=== PATIENT | female | born 1945 | race Caucasian/White ===

== ENCOUNTER → 2016-12-12 | Outpatient (CLI) | payer OTHER, SELFPAY ==
[~2016-12-12] MED LIST: ADVAIR HFA 115-12 GM INH; AMLODIPINE BESYL5 MG PO; AMLODIPINE-BENA1 CAP PO; ASCORBIC ACID500 M2 PO; ASPIRIN ENTERI325 M1 PO; BAYER ASPIRIN325 M1 PO; CALCIUM; CALCIUM + VITA1 EAC1 PO; CALCIUM PO; FISH OIL 1,0001 CAP PO; FISH OIL300 MG; GUMMI BEAR1 TAB.CHEW PO; LEVAQUIN PO; LOTENSIN20 MG PO; MEDROL; MELATONIN5 M1 PO; MIRAPEX0.25 MG PO; MUCINEX PO; MULTI-VITAMIN1 EAC1 PO; MULTIPLE VITAMI1 T11 PO; MULTIVITAMIN1 UDCAP PO; NORVASC PO; PREDNISONE PO; PROAIR HFA8.5 GM INH; SILDENAFIL20 MG PO; SIMVASTATIN20 MG PO; SYMBICORT INH; TAMIFLU75 M1 PO; TASPRIN325 MG PO; TYL325 PO; VITAMIN B COMP1 EACH PO; VITAMIN C; VITAMIN C500 M2 PO; Vitamin C; Vitamin C PO; ZOCOR20 MG PO; [UNRECOGNIZED DRUG - OTHER] PO
--- NOTE | ~2016-12-12 | US84 ---
[id number] [facility]. [facility] [address] [place], [place] [address] [id number] O MR#: [id number] Acc #: [id number] NAME: JEFF LEÓN : 1945 SEX: F STUDY DATE/TIME: 12/12/2016 10:28 UNIT: CNIV ROOM: STUDY DESCRIPTION: US LE Veins Complete Shon Stdy Attending Physician: Ned Reina M.D. Referring Physician: Ned Reina M.D. Ordering Physician: Ned Reina M.D. Primary Care Physician: Red Ruby M.D. MEDICAL IMAGING REPORT This report is preliminary unless electronic signature is present EXAM Bilateral lower extremity venous duplex 12/12/2016. HISTORY Bilateral lower extremity edema for 6 weeks and shortness of breath. Evaluate for deep vein thrombosis. FINDINGS TECHNIQUE Venous ultrasound examination of both lower extremities was performed using grayscale, spectral Doppler and color flow Doppler imaging. FINDINGS The examination is negative. There is no evidence of deep venous thrombus from the groin to the lower calf bilaterally. Visualized greater saphenous veins are also patent. IMPRESSION Negative examination. No evidence of lower extremity deep venous thrombosis. Dictated by... Adrian Quinteros M.D. THIS IS AN ELECTRONICALLY VERIFIED REPORT Adrian Quinteros M.D. at 12/13/2016 6:06 AM OBDULIA/sheri TD: 12/12/2016 16:22 JOB #: [id number] MEDICAL IMAGING REPORT COPY
--- NOTE | ~2016-12-12 | CR63 ---
[facility] A Service of [facility] & [facility] RADIOLOGY TEXT RESULTS PATIENT: JEFF LEÓN LOCATION: CNIV : 46 UNIT #: [id number] AGE: [address]: Ned Reina MD SEX: F ORDER DR: [id number] [facility] [address] [place], [place] [address] [id number] O MR#: [id number] Acc #: [id number] NAME: JEFF LEÓN : 1945 SEX: F STUDY DATE/TIME: 12/12/2016 12:42 UNIT: CNIV ROOM: STUDY DESCRIPTION: CR Chest 2 View Attending Physician: Ned Reina M.D. Referring Physician: Ned Reina M.D. Ordering Physician: Ned Reina M.D. Primary Care Physician: Red Ruby M.D. MEDICAL IMAGING REPORT This report is preliminary unless electronic signature is present EXAM Chest x-ray, 12/12 at 12:42 INDICATION Shortness of air today. COPD. Former smoker. FINDINGS 2 views of the chest are compared with 09/14/2016. The lungs remain emphysematous. There is some atherosclerotic disease in the aorta. Heart size within normal limits. Scattered areas of chronic interstitial scarring are again seen in both lungs. No acute infiltrates, and no pneumothorax. IMPRESSION Emphysema with scattered areas of scarring in the lungs. No acute findings in the chest. Dictated by... Rao Stoll Jr., M.D. THIS IS AN ELECTRONICALLY VERIFIED REPORT Rao Stoll Jr., M.D. at 12/13/2016 9:58 PM ELLEN/wesley TD: 12/13/2016 09:58 JOB #: [id number] MEDICAL IMAGING REPORT COPY
--- NOTE | ~2016-12-12 | NM69 ---
[facility] A Service of [facility] & [facility] RADIOLOGY TEXT RESULTS PATIENT: JEFF LEÓN LOCATION: CNIV : 46 UNIT #: [id number] AGE: [address]: Ned Reina MD SEX: F ORDER DR: [id number] [facility] [address] [place], [place] [address] [id number] O MR#: [id number] Acc #: [id number] NAME: JEFF LEÓN : 1945 SEX: F STUDY DATE/TIME: 12/12/2016 12:23 UNIT: CNIV ROOM: STUDY DESCRIPTION: NM Pulm Vent and Perf Attending Physician: Ned Reina M.D. Referring Physician: Ned Reina M.D. Ordering Physician: Ned Reina M.D. Primary Care Physician: Red Ruby M.D. MEDICAL IMAGING REPORT This report is preliminary unless electronic signature is present EXAM Ventilation-perfusion lung scan HISTORY 71-year-old female with shortness of air and bilateral leg pain, O2 levels dropped dramatically with exertion. Shortness of air for 4-5 months. COMPARISON Two-view chest 12/12/[address] chest 09/12/2016. FINDINGS Ventilation perfusion lung scan was performed in standard 8 projections. Perfusion agent 5.59 mCi technetium 99m MAA and the ventilation agent 28.7 mCi technetium 99m DTPA aerosol. Examination demonstrates areas of decreased perfusion right upper lobe and to a lesser extent left upper and left mid lungs. Particularly with the decreased perfusion of the right upper lobe this corresponds to an area of severe emphysema as noted on the patient's prior chest CT. There is some air trapping in the medial aspect of the right upper lung. No ventilation-perfusion mismatches are identified to suggest pulmonary embolus. Relatively symmetric perfusion between the right and left lung bases. IMPRESSION Multiple matched ventilation-perfusion defects felt to correspond to areas of emphysematous change as noted on patient's prior chest CT. Study is considered low probability for pulmonary embolus. Dictated by... aCleb Carballo M.D. THIS IS AN ELECTRONICALLY VERIFIED REPORT Caleb Carballo M.D. at 12/13/2016 5:00 PM [facility] A Service of [facility] & [facility] RADIOLOGY TEXT RESULTS PATIENT: JEFF LEÓN LOCATION: [facility] : 46 UNIT #: [id number] AGE: [address]: Ned Reina MD SEX: F ORDER DR: JUNIOR/wesley TD: 12/12/2016 19:02 JOB #: [id number] MEDICAL IMAGING REPORT COPY
== END | disposition home or self-care (01) ==
LOC: CNIV 09:31
DX: M79.604 Pain in right leg (principal); R06.02 Shortness of breath; M79.89 Other specified soft tissue disorders; M79.605 Pain in left leg; R94.2 Abnormal results of pulmonary function studies; J43.9 Emphysema, unspecified; J98.4 Other disorders of lung
CPT/HCPCS: 71020; 78582; 93970; A9540; A9567

== ENCOUNTER → 2017-03-08 | Outpatient (CLI) | payer OTHER ==
--- NOTE | ~2017-03-08 | CT57 ---
[facility] A Service of [facility] RADIOLOGY TEXT RESULTS PATIENT: JEFF LEÓN LOCATION: [facility] : 46 UNIT #: [id number] AGE: [address]: Ned Reina MD SEX: F ORDER DR: [id number] [facility] [address] [place], [place] [address] [id number] O MR#: [id number] Acc #: [id number] NAME: JEFF LEÓN : 1945 SEX: F STUDY DATE/TIME: 03/08/2017 13:27 [facility]: STUDY DESCRIPTION: CT Chest Wo Cont Attending Physician: Ned Reina M.D. Referring Physician: Ned Reina M.D. Ordering Physician: Ned Reina M.D. Primary Care Physician: Red Ruby M.D. MEDICAL IMAGING REPORT This report is preliminary unless electronic signature is present EXAM CT of the chest without contrast. INDICATION Shortness of breath since September, history of COPD and emphysema. TECHNIQUE CT of the chest was performed without contrast. Coronal and sagittal reformatted images were obtained. Comparison is made with 09/13/2016. This CT exam was performed with one or more of the following radiation dose reduction techniques: automatic exposure control, adjustment of mA and/or kV according to patient size, and iterative reconstruction. FINDINGS Emphysema. No suspicious pulmonary nodule. No new infiltrates. There are some stable mildly prominent mediastinal lymph nodes which are nonspecific and may be reactive. No evidence for pleural effusion. Coronary artery calcification. Limited imaging of the upper abdomen is unremarkable. Bone windows are unremarkable. IMPRESSION Emphysema. No suspicious pulmonary nodule or airspace consolidation. Dictated by... Simeon Carballo M.D. THIS IS AN ELECTRONICALLY VERIFIED REPORT Simeon Carballo M.D. at 03/09/2017 7:15 AM Csasandra TD: 03/08/2017 20:21 JOB #: [id number] [facility] A Service of [facility] RADIOLOGY TEXT RESULTS PATIENT: JEFF LEÓN LOCATION: [facility] : 46 UNIT #: [id number] AGE: [address]: Ned Reina MD SEX: F ORDER DR: MEDICAL IMAGING REPORT Page 1 of 1 COPY
== END | disposition home or self-care (01) ==
LOC: CCAT 12:56
DX: R93.8 Abnormal findings on diagnostic imaging of other specified body structures (principal); J43.9 Emphysema, unspecified
CPT/HCPCS: 71250

== ENCOUNTER 2017-06-19 18:10 | Inpatient (IN) | payer OTHER ==
[~2017-06-19] VITALS: Ht 152.4 cm; Wt 52.6 kg
--- NOTE | ~2017-06-19 | HP ---
Unit #: [id number] #: [id number] Patient: JEFF LEÓN [id number] [address] [place], [place] [address] [id number] I MR#: [id number] NAME: JEFF LEÓN. ROOM: 311 Age: 72 Sex: F Admission Date: 06/19/2017 : 1945 Attending Physician: Yessy Black M.D. Primary Care Physician: Red Ruby M.D. HISTORY AND PHYSICAL CHIEF COMPLAINT Shortness of breath, chest tightness. HISTORY OF PRESENTING ILLNESS A 72-year-old female who has significant pulmonary disease. Patient has severe COPD, has severe pulmonary hypertension. Was at [facility] and has been evaluated for lung transplant. Patient is not a candidate for lung transplant at this time because of severe pulmonary hypertension. She was doing okay until yesterday morning when she went shopping. On the way back from shopping, she started having shortness of breath worse. She came home and laid down for an hour but did not get better and actually gradually continued to get worse. Patient did have vomiting one time too yesterday on the way back from her shopping. She has some cough with sputum production off and on. No hemoptysis. She does not complain of fever at home, although in the ER, patient's T-max was 100. Patient is being admitted to telemetry unit. She has been diagnosed with influenza A and also acute COPD exacerbation. Patient is still complaining of generalized weakness and tiredness and complains of shortness of breath which is not any better at this time. PAST MEDICAL HISTORY 1. Hypertension. 2. Hyperlipidemia. 3. Severe COPD. 4. Chronic respiratory failure, on home O2. 5. Pulmonary hypertension. 6. TIA in the past. PAST SURGICAL HISTORY 1. Appendectomy. 2. Hysterectomy. 3. Hemorrhoidectomy. 4. Sinus surgery. SOCIAL HISTORY Patient has a past history of smoking but has not smoked for many years. No history of alcohol abuse or drug abuse. She lives by herself. She does have three sons. FAMILY HISTORY Patient does have a family history of CVA, diabetes mellitus, coronary artery disease, and ovarian cancer. Unit #: [id number] #: [id number] Patient: JEFF LEÓN HOME MEDICATIONS 1. Simvastatin 20 mg daily. 2. Mirapex 0.25 mg at bedtime. 3. Vj aspirin 325 mg daily. 4. Lotensin 20 mg daily. 5. Amlodipine 5 mg daily. 6. Advair 2 puffs inhaler q.12. 7. ProAir inhaler q.6 p.r.n. 8. Multivitamin daily. 9. Vitamin B-Complex tablet daily. 10. Vitamin C 500 mg daily. 11. Melatonin 5 mg at bedtime. 12. Fish oil capsules daily. 13. Levaquin 500 daily. 14. Medrol Dosepak. 15. Mucinex 600 twice daily. ALLERGIES No known drug allergies. REVIEW OF SYSTEMS As per History of Presenting Illness. Additionally, no chest pain, no abdominal pain, no constipation or diarrhea, no syncopal episode. She does complain of some dizziness. PHYSICAL EXAMINATION GENERAL: Patient is lying in bed and seems to be in mild respiratory distress. Patient is on 6 liters oxygen. VITAL SIGNS: Blood pressure is 132/50, respiratory rate 18, pulse 93, temperature 98.7, oxygen saturation is 93%. HEENT: Head is normocephalic. Eye movements are normal. Some mild respiratory distress. CHEST: Decreased air entry bilateral. CARDIOVASCULAR: S1 and S2 positive. Tachycardia. ABDOMEN: Soft. No tenderness. EXTREMITIES: Negative edema. CENTRAL NERVOUS SYSTEM: Patient is awake, alert, oriented x3. No focal neurological deficit. DIAGNOSTIC STUDIES LABORATORY: WBC 10.6, hemoglobin 16, hematocrit 47, platelet count of 236,000. Troponin is less than 0.05. Lactic acid 1.9. PT-INR is 12.4 and 1.1. Influenza A is positive. Sodium 140, potassium 4, chloride 106, BUN 23, creatinine 0.9. Liver enzymes are stable. BNP 33. Blood cultures are negative so far. IMAGING: Chest x-ray shows no acute radiographic abnormalities. Findings of emphysema. ASSESSMENT Patient is being admitted to telemetry unit at [facility] with: 1. Acute on chronic respiratory failure. 2. Influenza A positive. 3. Acute chronic obstructive pulmonary disease exacerbation. 4. Severe pulmonary hypertension. 5. Hypertension. 6. Hyperlipidemia. Unit #: [id number] #: [id number] Patient: JEFF LEÓN PLAN Admit to telemetry unit. Dr. Reina has been consulted. IV Solu-Medrol is being started. Tamiflu 75 mg b.i.d. is being started. DuoNeb q.i.d. Protonix 40 mg daily. Labs results from [facility] will be obtained. Home medications have been reviewed and adjusted. Lovenox for DVT prophylaxis is being given. The plan of care has been discussed with the patient at length. She does verbalize understanding. All questions were answered. Dictated by Mauricio Lo TD: 06/20/2017 16:22 JOB #: [id number] HISTORY AND PHYSICAL Page 1 of 1 X Yessy Black MD X HISTORY AND PHYSICAL
--- NOTE | ~2017-06-19 | EKG ---
PATIENT: JEFF LEÓN UNIT #: [id number] Ventricular Rate: 92 BPM Atrial Rate: 92 BPM P-R Interval: 138 ms QRS Duration: 78 ms Q-T Interval: 352 ms QTC Calculation(Bezet): 435 ms P [place]: 73 degrees Calculated R [place]: 57 degrees Calculated T [place]: 49 degrees Diagnosis Line: Normal sinus rhythm Diagnosis Line: Possible Left atrial enlargement Diagnosis Line: Borderline ECG Diagnosis Line: When compared with ECG of 01-NOV-2014 13:13, Diagnosis Line: No significant change was found Diagnosis Line: Confirmed by JAIME BARBOSA MD ([id number]) on Diagnosis Line: 06/20/2017 2:09:41 PM INTERPRETING MD: CHELSEY GARCIA
--- NOTE | ~2017-06-19 | CR72 ---
[facility] A Service of [facility] & [facility] RADIOLOGY TEXT RESULTS PATIENT: JEFF LEÓN LOCATION: [facility]- : 46 UNIT #: [id number] AGE: [address]: Yessy Black MD SEX: F ORDER DR: [id number] [facility] [address] [place], [place] [address] [id number] I MR#: [id number] Acc #: [id number] NAME: JEFF LEÓN. : 1945 SEX: F STUDY DATE/TIME: 06/19/2017 18:20 [facility] ROOM: [facility] STUDY DESCRIPTION: CR Chest Single View Portable Attending Physician: Yessy Black M.D. Ordering Physician: Corrine Thomas M.D. Primary Care Physician: Red Ruby M.D. MEDICAL IMAGING REPORT This report is preliminary unless electronic signature is present EXAM Portable AP view of the chest COMPARISON December 12, 2016, September 14, 2016 and September 12, 2016. INDICATIONS 72-year-old female with dyspnea and hypoxia today. History of hypertension, emphysema and COPD. FINDINGS No evidence of pneumothorax, pleural effusion or definite acute airspace disease. Minimal band-like opacities adjacent to the left heart border, stable from December 12, 2016, most in keeping with a normal bronchovascular structures and/or atelectasis. There is lung hyperlucency suggesting emphysema. Cardiomediastinal silhouette is within normal limits. There is calcification of the thoracic aorta. Calcified right hilar lymph nodes. Band-like opacities in left lung base are also stable as compared to insurance sales representative topogram of CT of March 08, 2017, favoring normal bronchovascular structures as there is no evidence of consolidative pneumonia or atelectasis at that time. IMPRESSION No acute radiographic abnormality of the chest. Findings of emphysema. Normal heart size. Dictated by... Walter Zuniga M.D. THIS IS AN ELECTRONICALLY VERIFIED REPORT Walter Zuniga M.D. at 06/22/2017 1:31 PM BLM/lb STS. [facility] A Service of [facility] & [facility] RADIOLOGY TEXT RESULTS PATIENT: JEFF LEÓN LOCATION: [facility] 311-01 : 46 UNIT #: [id number] AGE: [address]: Yessy Black MD SEX: F ORDER DR: TD: 06/20/2017 10:58 JOB #: [id number] MEDICAL IMAGING REPORT Page 1 of 1 COPY
--- NOTE | ~2017-06-19 | CO ---
Unit #: [id number] #: [id number] Patient: JEFF QUIROZ [id number] [address] [place], [place] [address] [id number] I MR#: [id number] NAME: JEFF QUIROZ. ROOM: 311 Age: 72 Sex: F Admission Date: 06/19/2017 : 1945 Attending Physician: Yessy Black M.D. Primary Care Physician: Red Ruby M.D. Consultation Date: 06/20/2017 CONSULTATION REPORT REASON FOR CONSULTATION COPD, respiratory failure. HISTORY OF PRESENT ILLNESS The patient is a 72-year-old female, known to me from office evaluation. She previously had been evaluated by another automation manager and actually had been referred to [facility] for possible transplant of her emphysema. She had severe pulmonary hypertension, marked desaturation of her oxygen with minimal exertion. She was in pulmonary rehab and slowly improving. I discussed the case with Dr. Flores and he did not feel that she was a transplant candidate for her emphysema, but did have severe pulmonary hypertension. After our discussion, she was evaluated by pulmonary hypertension specialist at [facility]. She apparently was put on sildenafil and also was being evaluated for possible inhaled therapy as well. She has undergone extensive workup including right heart catheterization and I do not have those details. She apparently felt ill and presented through the emergency room and was found to have influenza by rapid screen. We were asked to evaluate for her COPD and respiratory failure. She remains on her home dose of oxygen at 5 or 6 L. She denies much in the way of wheezing, although she was a little congested and short of breath, and just generally weak. There has been no sputum production or hemoptysis or chest pain. PAST MEDICAL HISTORY Remarkable for emphysema, chronic respiratory failure, pulmonary hypertension, restless legs, history of rhinitis and sinusitis. MEDICATIONS At home, she is on Stiolto 2 puffs a day, albuterol as needed. Other medicines include simvastatin, Mirapex, Vj Aspirin, Lotensin, Norvasc, Advair is listed but she was not taking that at home, multivitamin, melatonin. She had been given a Medrol Dosepak and Levaquin according to her med rec sheet. Again, accuracy is somewhat in question. ALLERGIES No known medical allergies. SOCIAL HISTORY Former smoker. She smoked 2-1/2 pack of cigarettes a day for over 30 years. She does not drink. FAMILY HISTORY Lung cancer in her mother. Unit #: [id number] #: [id number] Patient: JEFF QUIROZ REVIEW OF SYSTEMS She had some sinus drainage, which cause some emesis, but no real nausea, vomiting, hematuria, dysuria, focal weakness, paresthesias, leg pain, swelling. She feels better today than she did upon presentation. Further review of systems is negative. PHYSICAL EXAMINATION GENERAL: Reveals a patient, who is in no acute distress on 6 L oxygen. VITAL SIGNS: She is afebrile, pulse 93, respiratory rate is 18, blood pressure 132/50. She is 5 feet tall, 112 pounds. HEENT: Pupils are equal, round, and reactive to light. Sclerae anicteric. Head, atraumatic. NECK: Supple. No supraclavicular or cervical adenopathy appreciated. CHEST: Relatively clear, a few faint crackles at the right posterior base. No wheeze or stridor. CARDIAC: Reveals regular rate and rhythm. She does have a systolic murmur. ABDOMEN: Soft and nontender. No hepatomegaly or rebound. EXTREMITIES: Reveal no clubbing, cyanosis, or edema. No calf tenderness. SKIN: Warm and dry without rash or diaphoresis. NEUROLOGIC: Grossly intact. DIAGNOSTIC STUDIES LABORATORY RESULTS: BUN 23, creatinine 0.9, remainder of her CMP is essentially normal. INR normal. Cardiac enzymes normal. White blood cell count 10.6, hemoglobin 16, platelet count 236. Of note, she had an arterial blood gas in 09/2016, pH was 7.39, pCO2 of 38, pO2 of 83 on 6 L. She had flu screen positive for influenza A. Blood cultures performed and are pending. IMAGING STUDIES: Chest x-ray is fairly unremarkable. IMPRESSION 1. Influenza A, currently on Tamiflu. 2. Emphysema. 3. Chronic respiratory failure. 4. Pulmonary hypertension. PLAN Agree with Tamiflu, treatment of her COPD, but I will reduce her steroids. While in the hospital, Dulera and DuoNeb is adequate. Restart her Stiolto and albuterol when at home. We will try to obtain copy of her right heart catheterization. In the meantime, order an echo with bubble contrast and look for shunt. Thank you very much for allowing me to participate in the care of Ms. Quiroz. Dictated by... Mauricio Hernandes/ermias TD: 06/20/2017 18:53 JOB #: [id number] CC: Mauricio Lo M.D. Unit #: [id number] #: [id number] Patient: QUIROZ,JEFF Zora CONSULTATION REPORT Page 1 of 1 X Ned Reina MD CONSULTATION REPORT
--- NOTE | ~2017-06-19 | DS ---
Unit #: [id number] #: [id number] Patient: JEFF LEÓN [id number] [address] [address] [id number] I MR#: [id number] NAME: JEFF LEÓN. ROOM: 311 Age: 72 Sex: F Admission Date: 06/19/2017 : 1945 Discharge Date: 06/22/2017 Attending Physician: Yessy Black M.D. Primary Care Physician: Red Ruby M.D. DISCHARGE SUMMARY DISCHARGE DIAGNOSES 1. Acute on chronic respiratory failure. 2. Acute exacerbation of chronic obstructive pulmonary disease. 3. Influenzae A. 4. Pulmonary hypertension. 5. Dyslipidemia. 6. Steroid-induced leukocytosis. 7. Hypertension. CONSULTS DURING THIS HOSPITAL STAY Dr. Hancock. LABS, DIAGNOSTICS AND PROCEDURES DURING THIS HOSPITAL STAY Chest x-ray on admission shows no acute findings except for emphysema. Flu was positive for influenzae A. HISTORY OF PRESENT HOSPITAL STAY Please refer to H and P done by my colleague for initial presentation on this female. ACTIVE PROBLEMS AND DIAGNOSES 1. Acute on chronic respiratory failure secondary to acute exacerbation of COPD and influenzae type A which improved with the bronchodilators, IV steroids, currently switched to p.o. steroids. Stable to be discharged from a pulmonary standpoint. Started on the Tamiflu. Continue Tamiflu for 1 more day for a total of 5 days. 2. History of pulmonary hypertension, continue home meds. See discharge Med Rec below. 3. Dyslipidemia, continue home medications. 4. Steroid-induced leukocytosis, stable, afebrile. Okay to discharge from pulmonary standpoint. 5. Hypertension, stable. DISCHARGE MEDICATIONS 1. Tamiflu 75 mg p.o. b.i.d. for 1 more day after today. 2. Tapering dose of p.o. prednisone. 3. Vitamin C 500 mg p.o. daily. 4. Mucinex 600 mg p.o. b.i.d. 5. Vitamin B/C complex 1 tablet daily. 6. Sildenafil 20 mg t.i.d. 7. Aspirin 375 daily. 8. Motrin 5 mg p.r.n. 9. Multivitamin daily. 10. Fish oil 1 cap p.o. daily. Unit #: [id number] #: [id number] Patient: JEFF LEÓN 11. Lotensin 20 mg daily. 12. Simvastatin 20 mg at bedtime. 13. Mirapex 0.25 mg p.o. at bedtime. 14. Amlodipine 5 mg daily. 15. Tylenol p.r.n. 16. Advair 2 puffs inhaler b.i.d. 17. ProAir 2 puffs inhaler q.6 hours p.r.n. for shortness of air. Patient is to follow up with the primary care physician in 2-3 days. Outpatient followup with pulmonary. Dictated by... Mauricio Elizabeth/abdirahman TD: 06/23/2017 05:34 JOB #: [id number] DISCHARGE SUMMARY Page 1 of 1 X Aiden Ackerman MD X DISCHARGE SUMMARY
[~2017-06-19 18:10] MED LIST changes: -PREDNISONE PO; -SILDENAFIL20 MG PO; -TAMIFLU75 M1 PO; -TYL325 PO
[2017-06-19 18:59] LABS: BASOPHIL# 0.1 X10e3 (0-0.3); BASOPHIL% 0.7 % (0-2.5); EOSINOPHIL# 0.1 X10e3 (0-0.7); EOSINOPHIL% 0.5 % (0.0-7.0); LYMPHOCYTE# 1.7 X10e3 (1.0-3.5); LYMPHOCYTE% 16.4 % (17.0-45.0); MEAN CELL VOLUME 91.6 FL (83-96); MEAN CORPUSCULAR HEMOGLOBIN 31.3 PG (28-34); MEAN CORPUSCULAR HGB CONC 34.1 g/dL (30-36); MEAN PLATELET VOLUME 8.3 FL (6.5-11.5); MONOCYTE# 0.7 X10e3 (0-1.0); MONOCYTE% 6.9 % (3.0-12.0); NEUTROPHIL% 75.5 % (40-75); PLATELET COUNT 236 X10e3 (140-420); RED BLOOD COUNT 5.13 X10e (3.90-5.30); RED CELL DISTRIBUTION WIDTH 12.9 % (11.0-15.5); WHITE BLOOD COUNT 10.6 X10e3 (4.0-10.5)
[2017-06-19 19:00] LABS: DIFF IND NO
[2017-06-19 19:11] LABS: INR 1.1; PARTIAL THROMBOPLASTIN TIME 24.5 SECONDS (23.5-31.3); PROTHROMBIN TIME (PATIENT) 12.4 SECONDS (10.0-11.7)
[2017-06-19 19:12] LABS: POC - CKMB 1.1 ng/mL (0.0-7.9); POC - TROPONIN <0.05 ng/mL (<=0.05)
[2017-06-19 19:18] LABS: INFLUENZA A POS (NEG); INFLUENZA B NEG (NEG)
[2017-06-19 19:24] LABS: ALBUMIN SERUM 4.3 g/dL (3.5-5.0); BILIRUBIN, DIRECT 0.1 mg/dL (0.0-0.2); BILIRUBIN,INDIRECT 0.8 mg/dL (0.0-0.9); BILIRUBIN,TOTAL 0.9 mg/dL (0.2-2.0); BUN/CREATININE RATIO 25.55; CALCIUM SERUM 9.8 mg/dL (8.4-10.2); CREATININE SERUM 0.9 mg/dL (0.6-1.4); GLOM FILT RATE Estimated 64.4 mL/min (>60); PROTEIN TOTAL SERUM 7.3 g/dL (6.0-8.3)
[2017-06-19 20:27] LABS: POC - CKMB <1.0 ng/mL (0.0-7.9); POC - TROPONIN <0.05 ng/mL (<=0.05)
[2017-06-20] MEDS ORDERED: SILDENAFIL20 MG PO (10:48)
[2017-06-21 04:48] LABS: HEMATOCRIT 41.7 % (35.0-45.0); MEAN CELL VOLUME 93.5 FL (83-96); MEAN CORPUSCULAR HEMOGLOBIN 30.9 PG (28-34); RED BLOOD COUNT 4.46 X10e (3.90-5.30); RED CELL DISTRIBUTION WIDTH 13.3 % (11.0-15.5)
[2017-06-21 04:49] LABS: HEMOGLOBIN 13.8 gm/dL (12.0-16.0)
[2017-06-21 05:06] LABS: ALBUMIN SERUM 3.4 g/dL (3.5-5.0); PHOSPHOROUS 4.2 mg/dL (2.5-4.6)
[2017-06-21 05:10] LABS: BUN/CREATININE RATIO 33.75; CREATININE SERUM 0.8 mg/dL (0.6-1.4); GLOM FILT RATE Estimated 74.2 mL/min (>60); POTASSIUM 4.6 mmol/L (3.5-5.1)
[2017-06-22] MEDS ORDERED: PREDNISONE PO (18:11)
[2017-06-22] MEDS ORDERED: TYL325 PO (18:11)
[2017-06-22] MEDS ORDERED: TAMIFLU75 M1 PO (18:12)
== END 2017-06-22 19:07 | disposition home or self-care (01) | DRG 189 ==
LOC: CED 18:10 → C3A PCU 20:10 → CEDOF 20:10 → CED 20:24 → C3A PCU 06-20 07:44 → CEDOF 06-20 07:44 → C3A PCU 06-22 19:07
PROVIDERS: Emergency Medicine; Internal Medicine Nephrology; Physician Assistant Medical
PROC: B24BYZZ Ultrasonography of Heart with Aorta using Other Contrast (ICD-10-PCS; principal; 2017-06-21)
DX: J96.20 Acute and chronic respiratory failure, unspecified whether with hypoxia or hypercapnia (principal); I27.2 Other secondary pulmonary hypertension; Z99.81 Dependence on supplemental oxygen; I10 Essential (primary) hypertension; E78.5 Hyperlipidemia, unspecified; J44.9 Chronic obstructive pulmonary disease, unspecified; Z86.73 Personal history of transient ischemic attack (TIA), and cerebral infarction without residual deficits; Z90.710 Acquired absence of both cervix and uterus; Z79.82 Long term (current) use of aspirin; G25.81 Restless legs syndrome; F17.210 Nicotine dependence, cigarettes, uncomplicated; J11.1 Influenza due to unidentified influenza virus with other respiratory manifestations; D72.829 Elevated white blood cell count, unspecified; T38.0X5A Adverse effect of glucocorticoids and synthetic analogues, initial encounter
CPT/HCPCS: 36415; 71010; 80048; 80076; 82040; 82553; 83605; 83880; 84100; 84484; 85025; 85027; 85610; 85730; 87040; 87804; 93005; 93306; 94640; 94760; 96365; 96367; 96375; 99285; J0456; J0696; J1650; J2920; J2930; J3475